=== PATIENT | male | born 1945 | race Native Hawaiian/Other Pacific Islander ===

== ENCOUNTER 2019-07-18 14:05 | Outpatient (CLI) | payer OTHER ==
[2019-07-18 14:21] LABS: PLATELET COUNT 210 K/uL (142-355)
== END 2019-07-18 20:47 | disposition home or self-care (01) ==
LOC: LAB 14:05
PROVIDERS: Physician Assistant
DX: R79.0 Abnormal level of blood mineral (principal); D64.89 Other specified anemias
CPT/HCPCS: 83735; 85027